=== PATIENT | female | born 1960 | race Caucasian/White ===

== ENCOUNTER 2017-09-01 18:08 | Emergency (ER) | payer OTHER ==
[2017-09-01] MEDS: KETOROLAC 60 MG INJ IM (19:14)
[2017-09-01] MEDS: predniSONE 20 MG TAB PO (19:14)
[2017-09-01] MEDS: ALBUTEROL 0.083% (NEB) 2.5 MG/3 ML AMP HHN (19:27)
[2017-09-01] MEDS: IPRATROPIUM (NEB) 0.5 MG/2.5 ML AMP HHN (19:27)
== END 2017-09-01 20:08 | disposition home or self-care (01) ==
LOC: FTE 18:08
DX: J45.901 Unspecified asthma with (acute) exacerbation (principal); I10 Essential (primary) hypertension; R05 Cough
CPT/HCPCS: 94664; 96372; 99284-25

== ENCOUNTER 2017-09-09 15:05 | Emergency (ER) | payer OTHER ==
[2017-09-09] MEDS ORDERED: LORAZEPAM 1 MG TAB PO (16:30)
[2017-09-09] MEDS: IPRATROPIUM (NEB) 0.5 MG/2.5 ML AMP HHN (16:31)
[2017-09-09] MEDS: LORAZEPAM 1 MG TAB PO (16:32)
[2017-09-09] MEDS: AZITHROMYCIN 250 MG TAB PO (17:36)
[2017-09-09] MEDS: PROMETHAZINE 25 MG TAB PO (17:36)
[2017-09-09] MEDS: LACTATED RINGER'S 500 ML IV (18:47)
== END 2017-09-09 19:15 | disposition home or self-care (01) ==
LOC: FTE 15:05
DX: R05 Cough (principal); A49.9 Bacterial infection, unspecified; J45.901 Unspecified asthma with (acute) exacerbation; I10 Essential (primary) hypertension
CPT/HCPCS: 71046; 94664; 99283-25

== ENCOUNTER 2018-02-15 20:27 | Emergency (ER) | payer OTHER ==
[2018-02-15] MEDS: ALBUTEROL 0.083% (NEB) 2.5 MG/3 ML AMP HHN (23:03)
[2018-02-15] MEDS: IPRATROPIUM (NEB) 0.5 MG/2.5 ML AMP HHN (23:03)
[2018-02-15] MEDS: METHYLPREDNISOLONE 125 MG INJ IM (23:52)
== END 2018-02-16 00:28 | disposition home or self-care (01) ==
LOC: FTE 20:27
DX: J03.90 Acute tonsillitis, unspecified (principal); J32.9 Chronic sinusitis, unspecified; I10 Essential (primary) hypertension
CPT/HCPCS: 94664; 96372; 99284-25

== ENCOUNTER 2018-03-06 04:08 | Emergency (ER) | payer OTHER ==
[2018-03-06] MEDS: HYDROCODONE/APAP (5/325) TAB PO (06:38)
== END 2018-03-06 06:45 | disposition home or self-care (01) ==
LOC: FTE 04:08
DX: M54.9 Dorsalgia, unspecified (principal); J45.909 Unspecified asthma, uncomplicated; I10 Essential (primary) hypertension
CPT/HCPCS: 99284

== ENCOUNTER 2019-03-08 14:59 | Emergency (ER) | payer BC, OTHER ==
[2019-03-08] MEDS: predniSONE 20 MG TAB PO (15:50)
[2019-03-08] MEDS: ALBUTEROL 0.083% (NEB) 2.5 MG/3 ML AMP NEB (15:58)
[2019-03-08] MEDS: IPRATROPIUM (NEB) 0.5 MG/2.5 ML AMP NEB (15:58)
== END 2019-03-08 17:09 | disposition home or self-care (01) ==
LOC: FTE 14:59
DX: J45.21 Mild intermittent asthma with (acute) exacerbation (principal); I10 Essential (primary) hypertension
CPT/HCPCS: 94664; 99283-25